=== PATIENT | female | born 1965 | race Caucasian/White ===

== ENCOUNTER 2019-07-28 12:14 | Emergency (ER) | payer MEDICAID ==
[2019-07-28] MEDS ORDERED: Sodium Chloride 0.9% 10 ML Syringe FLUSH PRN (12:30)
[2019-07-28] MEDS ORDERED: Labetalol 20 MG/4 ML Syringe IVPUSH ONE ×3 (12:39→13:59)
[2019-07-28 13:08] LABS: CHLORIDE,CL 99 mmol/L (54-184); SODIUM,NA 141 mmol/L (69-191)
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
[2019-07-28 13:17] LABS: ANION GAP 18.3 mmol/L (10-20)
[2019-07-28 13:54] LABS: BUPRENORPHINE,URINE NEGATIVE (NEGATIVE); MARIJUANA,URINE POSITIVE (NEGATIVE); METHYLENEDIOXYMETHAMP,UR NEGATIVE (NEGATIVE); PHENCYCLIDINE,URINE NEGATIVE (NEGATIVE)
[2019-07-28] MEDS ORDERED: hydrALAZINE 20 MG/ML SDV IVPUSH ONE (14:32)
== END 2019-07-28 15:30 | disposition home or self-care (01) ==
LOC: VM.ED 12:14
DX: I10 Essential (primary) hypertension (principal); F19.20 Other psychoactive substance dependence, uncomplicated; F15.90 Other stimulant use, unspecified, uncomplicated; R30.0 Dysuria; R35.0 Frequency of micturition; R39.15 Urgency of urination; F32.9 Major depressive disorder, single episode, unspecified; F41.9 Anxiety disorder, unspecified; Z79.82 Long term (current) use of aspirin; Z79.899 Other long term (current) drug therapy; Z91.048 Other nonmedicinal substance allergy status
CPT/HCPCS: 80053; 80305-QW; 81001; 85025; 93005; 96374; 96375; 96376; 99284-25; J0360; J3490

== ENCOUNTER 2023-11-17 17:22 | Emergency (ER) | payer MEDICAID ==
[2023-11-17] MEDS: Take Home: LORazepam 0.5 MG Tab, 2 Tab Pack PO ONE (17:43)
[2023-11-17] MEDS: LORazepam 2 MG/ML SDV IM ONE (17:43)
== END 2023-11-17 18:07 | disposition home or self-care (01) ==
LOC: VM.ED 17:22
DX: F43.0 Acute stress reaction (principal); I10 Essential (primary) hypertension; K21.9 Gastro-esophageal reflux disease without esophagitis; Z91.048 Other nonmedicinal substance allergy status; Z79.899 Other long term (current) drug therapy; Z79.82 Long term (current) use of aspirin
CPT/HCPCS: 96372; 99283; A9270; J2060

== ENCOUNTER 2024-06-16 11:14 | Inpatient (IN) | payer MEDICAID ==
[2024-06-16 12:33] LABS: BASOPHILS PERCENT AUTO 0.2 % (0.2-1.2); EOSINOPHILS PERCENT AUTO 0.1 % (0.0-4.0); HEMATOCRIT 37.4 % (33.0-47.0); HEMOGLOBIN 12.8 g/dL (12.0-16.0); IMMATURE GRAN ABSOLUTE AUTO 0.03 x10^3/uL (0.00-0.07); LYMPHOCYTES ABSOLUTE AUTO 1.7 x10^3/uL (1.0-4.8); LYMPHOCYTES PERCENT AUTO 9.6 % (25.0-50.0); MEAN CORPUSCULAR HEMOGLOBIN 29.7 pg (26.0-32.0); MEAN CORPUSCULAR HGB CONC 34.2 g/dL (32.0-36.0); MEAN CORPUSCULAR VOLUME 86.8 fL (78.0-93.0); MONOCYTES ABSOLUTE AUTO 1.6 x10^3/uL (0.0-0.8); MONOCYTES PERCENT AUTO 9.1 % (2.0-11.0); NEUTROPHILS ABSOLUTE AUTO 14.6 x10^3/uL (1.8-7.7); NEUTROPHILS PERCENT AUTO 80.8 % (50.0-80.0); PLATELET COUNT,PLT 319 x10^3/uL (130-400); RED BLOOD CELL COUNT 4.31 x10^6/uL (4.00-5.50)
[2024-06-16 12:58] LABS: A/G RATIO 1.17; ALANINE AMINOTRANSFERASE,ALT 74 U/L (14-59); ALBUMIN 4.1 g/dL (3.4-5.0); ALKALINE PHOSPHATASE 101 U/L (46-116); AMYLASE 9 U/L (25-115); ASPARTATE AMNIOTRANSFERASE,AST 101 U/L (15-37); BILIRUBIN TOTAL 1.2 mg/dL (0.2-1.0); BLOOD UREA NITROGEN,BUN 14 mg/dL (7-18); CALCIUM 9.4 mg/dL (8.5-10.1); CARBON DIOXIDE,CO2 25 mmol/L (21-32); CHLORIDE,CL 100 mmol/L (98-107); CREATININE 1.1 mg/dL (0.55-1.02); EST CRCL DRUG DOSING (CG) 39.55 mL/min; GLUCOSE RANDOM 121 mg/dL (70-99); LIPASE 15 U/L (19-71); MAGNESIUM 1.3 mg/dL (1.8-2.4); PRO B-TYPE NATRIUR PEPT,BNPPRO 1267 pg/mL (<=125); PROTEIN TOTAL,TP 7.6 g/dL (6.4-8.2); SODIUM,NA 141 mmol/L (136-145); TSH ULTRASENSITIVE 0.299 uIU/mL (0.358-3.74)
[2024-06-16 12:59] LABS: ACETAMINOPHEN 0 ug/ml (10-30); ANION GAP 18.6 mmol/L (5-15); ESTIMATED GFR 58 mL/min (>=60); ETHANOL BLOOD MEDICAL < 3 mg/dL (0-3); POTASSIUM,K 2.6 mmol/L (3.5-5.1)
[2024-06-16 14:14] LABS: AMPHETAMINE, URINE POSITIVE (NEGATIVE); BARBITUATES,URINE NEGATIVE (NEGATIVE); BENZODIAZEPINES,URINE POSITIVE (NEGATIVE); BUPRENORPHINE,URINE NEGATIVE (NEGATIVE); COCAINE,URINE NEGATIVE (NEGATIVE); MARIJUANA,URINE POSITIVE (NEGATIVE); METHADONE,URINE NEGATIVE (NEGATIVE); METHAMPHETAMINE,URINE POSITIVE (NEGATIVE); METHYLENEDIOXYMETHAMP,UR NEGATIVE (NEGATIVE); OPIATES,URINE NEGATIVE (NEGATIVE); OXYCODONE,URINE NEGATIVE (NEGATIVE); PHENCYCLIDINE,URINE NEGATIVE
[2024-06-16] MEDS: Potassium Chloride 20 MEQ Tab.ER PO ONE (14:29)
[2024-06-16] MEDS: Lactated Ringers 1,000 ML IV SCH (14:30)
[2024-06-16] MEDS: Magnesium Sulfate/Water 4 GM in Premix Bag 1 BAG IV ONE (14:33)
[2024-06-16] MEDS: Magnesium Sulfate/Water 100 ML ONE (14:39)
[2024-06-16] MEDS: Potassium Chloride Riders 20 MEQ in Premix Bag 1 BAG IV SCH (14:49)
[2024-06-16] MEDS ORDERED: Flumazenil 0.1 MG/ML 5 ML MDV IVPUSH PRN (17:03)
[2024-06-16] MEDS ORDERED: Ondansetron 4 MG Tab.DIS PO PRN (17:06)
[2024-06-16] MEDS ORDERED: HYDROmorphone 0.5 MG/0.5 ML Syringe IVPUSH PRN (17:06)
[2024-06-16] MEDS ORDERED: Cyclobenzaprine 10 MG Tab PO PRN (17:15)
[2024-06-16] MEDS ORDERED: Loratadine 10 MG Tab PO PRN (17:15)
[2024-06-16] MEDS ORDERED: Magnesium Hydroxide 400 MG/5 ML Susp 30 ML Cup PO PRN (17:15)
[2024-06-16 17:27] LABS: CALCIUM 9.4 mg/dL (8.5-10.1); CREATININE 1.1 mg/dL (0.55-1.02); EST CRCL DRUG DOSING (CG) 39.55 mL/min
[2024-06-16 18:25] LABS: BILIRUBIN,URINE MODERATE (NEGATIVE); GLUCOSE,URINE NEGATIVE (NEGATIVE); KETONES,URINE 80 mg/dL (NEGATIVE); LEUKOCYTE ESTERASE,URINE NEGATIVE (NEGATIVE); NITRITE,URINE NEGATIVE (NEGATIVE); OCCULT BLOOD,URINE MODERATE (NEGATIVE); PROTEIN,URINE 100 mg/dL (NEGATIVE); UROBILINOGEN,URINE 0.2 EU/dL (0.2)
[2024-06-16] MEDS: LORazepam 2 MG/ML SDV IVPUSH PRN (18:26)
[2024-06-16 18:35] LABS: APPEARANCE,URINE SLIGHTLY CLOUDY (CLEAR); COLOR,URINE DARK YELLOW (YELLOW)
[2024-06-16 18:36] LABS: BACTERIA,URINE OCCASIONAL /HPF (NOT SEEN); MUCUS,URINE OCCASIONAL /LPF (NOT SEEN); SQUAMOUS EPITHELIAL CELLS,UR OCCASIONAL /HPF (NOT SEEN); WBC,URINE 0-5 /HPF (NOT SEEN)
[2024-06-16] MEDS: Potassium Chloride 20 MEQ Tab.ER PO SCH (18:43)
[2024-06-16] MEDS: Folic Acid 1 MG Tab PO SCH (18:43)
[2024-06-16] MEDS: Thiamine 200 MG/2 ML MDV IV SCH (18:44)
[2024-06-16] MEDS: cefTRIAXone 1 GM Vial IVPUSH SCH (18:44)
[2024-06-16] MEDS: traZODone 50 MG Tab PO SCH (20:45)
[2024-06-16] MEDS: Magnesium Oxide 400 MG Tab PO SCH (20:45)
[2024-06-16] MEDS: Gabapentin 300 MG Cap PO SCH (20:45)
[2024-06-17 06:50] LABS: BASOPHILS ABSOLUTE AUTO 0.1 x10^3/uL (0.0-0.2); BASOPHILS PERCENT AUTO 0.3 % (0.2-1.2); EOSINOPHILS ABSOLUTE AUTO 0.1 x10^3/uL (0.0-0.5); EOSINOPHILS PERCENT AUTO 0.9 % (0.0-4.0); HEMATOCRIT 37.2 % (33.0-47.0); HEMOGLOBIN 12.5 g/dL (12.0-16.0); IMMATURE GRAN ABSOLUTE AUTO 0.04 x10^3/uL (0.00-0.07); LYMPHOCYTES ABSOLUTE AUTO 3.2 x10^3/uL (1.0-4.8); LYMPHOCYTES PERCENT AUTO 21.3 % (25.0-50.0); MEAN CORPUSCULAR HEMOGLOBIN 29.5 pg (26.0-32.0); MEAN CORPUSCULAR HGB CONC 33.6 g/dL (32.0-36.0); MEAN CORPUSCULAR VOLUME 87.7 fL (78.0-93.0); MONOCYTES ABSOLUTE AUTO 1.6 x10^3/uL (0.0-0.8); MONOCYTES PERCENT AUTO 10.6 % (2.0-11.0); NEUTROPHILS ABSOLUTE AUTO 10.1 x10^3/uL (1.8-7.7); NEUTROPHILS PERCENT AUTO 66.6 % (50.0-80.0); RED BLOOD CELL COUNT 4.24 x10^6/uL (4.00-5.50); WHITE BLOOD CELL COUNT,WBC 15.1 x10^3/uL (4.0-10.0)
[2024-06-17 07:06] LABS: A/G RATIO 0.87; ALBUMIN 3.3 g/dL (3.4-5.0); BILIRUBIN TOTAL 0.9 mg/dL (0.2-1.0); CALCIUM 9.2 mg/dL (8.5-10.1); EST CRCL DRUG DOSING (CG) 43.51 mL/min; POTASSIUM,K 3.6 mmol/L (3.5-5.1); PROTEIN TOTAL,TP 7.1 g/dL (6.4-8.2)
[2024-06-17 07:07] LABS: PLATELET COUNT,PLT 331 x10^3/uL (130-400)
[2024-06-17 07:09] LABS: ANION GAP 12.6 mmol/L (5-15)
[2024-06-17] MEDS: buPROPion 150 MG Tab.ER PO SCH (09:40)
[2024-06-17] MEDS: Potassium Chloride 20 MEQ Tab.ER PO SCH (09:40)
[2024-06-17] MEDS: Tamsulosin 0.4 MG Cap.ER PO SCH (09:40)
[2024-06-17] MEDS: PARoxetine 20 MG Tab PO SCH (09:41)
[2024-06-17] MEDS: Pantoprazole 40 MG Tab.CR PO SCH (09:41)
[2024-06-17] MEDS: Multivitamin Tab PO SCH (09:41)
[2024-06-17] MEDS: Atenolol 50 MG Tab PO SCH (09:49)
[2024-06-17] MEDS: amLODIPine 5 MG Tab PO SCH (09:59)
[2024-06-17] MEDS: LINACLOTIDE 290 MCG PO SCH (10:00)
[2024-06-17] MEDS: Fluticasone Propionate Nasal Spray 9.9 ML BOTTLE NASBOTH SCH (10:00)
[2024-06-17] MEDS: Sodium Chloride 0.9% 1,000 ML IV SCH (12:22)
[2024-06-17] MEDS: Nicotine 14 MG/24 Hr Patch TRDERM PRN (20:17)
[2024-06-18 06:58] LABS: BASOPHILS ABSOLUTE AUTO 0.1 x10^3/uL (0.0-0.2); BASOPHILS PERCENT AUTO 0.8 % (0.2-1.2); EOSINOPHILS ABSOLUTE AUTO 0.3 x10^3/uL (0.0-0.5); EOSINOPHILS PERCENT AUTO 4.1 % (0.0-4.0); HEMATOCRIT 35.1 % (33.0-47.0); HEMOGLOBIN 11.2 g/dL (12.0-16.0); IMMATURE GRAN ABSOLUTE AUTO 0.02 x10^3/uL (0.00-0.07); LYMPHOCYTES ABSOLUTE AUTO 2.6 x10^3/uL (1.0-4.8); LYMPHOCYTES PERCENT AUTO 34.4 % (25.0-50.0); MEAN CORPUSCULAR HEMOGLOBIN 29.6 pg (26.0-32.0); MEAN CORPUSCULAR HGB CONC 31.9 g/dL (32.0-36.0); MEAN CORPUSCULAR VOLUME 92.6 fL (78.0-93.0); MONOCYTES ABSOLUTE AUTO 0.9 x10^3/uL (0.0-0.8); MONOCYTES PERCENT AUTO 11.3 % (2.0-11.0); NEUTROPHILS ABSOLUTE AUTO 3.7 x10^3/uL (1.8-7.7); NEUTROPHILS PERCENT AUTO 49.1 % (50.0-80.0); PLATELET COUNT,PLT 249 x10^3/uL (130-400); RED BLOOD CELL COUNT 3.79 x10^6/uL (4.00-5.50); WHITE BLOOD CELL COUNT,WBC 7.6 x10^3/uL (4.0-10.0)
[2024-06-18 07:20] LABS: A/G RATIO 0.81; ALBUMIN 2.6 g/dL (3.4-5.0); BILIRUBIN TOTAL 0.3 mg/dL (0.2-1.0); CALCIUM 8.4 mg/dL (8.5-10.1); CREATININE 0.8 mg/dL (0.55-1.02); EST CRCL DRUG DOSING (CG) 54.39 mL/min; POTASSIUM,K 3.5 mmol/L (3.5-5.1); PROTEIN TOTAL,TP 5.8 g/dL (6.4-8.2)
[2024-06-18 07:22] LABS: ANION GAP 10.5 mmol/L (5-15)
[2024-06-18] MEDS: Acetaminophen 500 MG Tab PO PRN (10:20)
[2024-06-18] MEDS: ALPRAZolam 0.25 MG Tab PO PRN (10:54)
[2024-06-18] MEDS: Enoxaparin 40 MG/0.4 ML Syringe SUBCUT SCH (12:44)
[2024-06-18] MEDS: hydrOXYzine HCl 25 MG Tab PO PRN (13:46)
[2024-06-19 06:52] LABS: BASOPHILS ABSOLUTE AUTO 0.1 x10^3/uL (0.0-0.2); BASOPHILS PERCENT AUTO 0.7 % (0.2-1.2); EOSINOPHILS ABSOLUTE AUTO 0.3 x10^3/uL (0.0-0.5); EOSINOPHILS PERCENT AUTO 4.6 % (0.0-4.0); HEMATOCRIT 36.9 % (33.0-47.0); HEMOGLOBIN 11.9 g/dL (12.0-16.0); IMMATURE GRAN ABSOLUTE AUTO 0.02 x10^3/uL (0.00-0.07); LYMPHOCYTES ABSOLUTE AUTO 2.6 x10^3/uL (1.0-4.8); LYMPHOCYTES PERCENT AUTO 36.7 % (25.0-50.0); MEAN CORPUSCULAR HEMOGLOBIN 29.6 pg (26.0-32.0); MEAN CORPUSCULAR HGB CONC 32.2 g/dL (32.0-36.0); MEAN CORPUSCULAR VOLUME 91.8 fL (78.0-93.0); MONOCYTES ABSOLUTE AUTO 0.6 x10^3/uL (0.0-0.8); MONOCYTES PERCENT AUTO 8.4 % (2.0-11.0); NEUTROPHILS ABSOLUTE AUTO 3.5 x10^3/uL (1.8-7.7); NEUTROPHILS PERCENT AUTO 49.3 % (50.0-80.0); PLATELET COUNT,PLT 308 x10^3/uL (130-400); RED BLOOD CELL COUNT 4.02 x10^6/uL (4.00-5.50); WHITE BLOOD CELL COUNT,WBC 7.1 x10^3/uL (4.0-10.0)
[2024-06-19 07:03] LABS: CALCIUM 9.2 mg/dL (8.5-10.1); CREATININE 0.8 mg/dL (0.55-1.02); EST CRCL DRUG DOSING (CG) 54.39 mL/min; POTASSIUM,K 3.8 mmol/L (3.5-5.1)
[2024-06-19 07:05] LABS: ANION GAP 9.8 mmol/L (5-15)
[2024-06-19] MEDS: Clindamycin HCl 150 MG Cap PO SCH (08:22)
[2024-06-19] MEDS: Sodium Chloride 0.9% 10 ML Syringe FLUSH PRN (08:26)
[2024-06-19] MEDS: Hydrochlorothiazide 25 MG Tab PO SCH (11:46)
== END 2024-06-19 16:32 | disposition swing bed (61) | DRG 564 ==
LOC: VM.ED 11:14 → VM.MS 15:44
PROVIDERS: ADMIT Internal Medicine; ATTEND Internal Medicine
DX: T79.6XXA Traumatic ischemia of muscle, initial encounter (principal); G93.41 Metabolic encephalopathy; R41.0 Disorientation, unspecified; R74.8 Abnormal levels of other serum enzymes; F12.10 Cannabis abuse, uncomplicated; I10 Essential (primary) hypertension; E78.00 Pure hypercholesterolemia, unspecified; H54.7 Unspecified visual loss; Z74.1 Need for assistance with personal care; Z90.710 Acquired absence of both cervix and uterus; K59.09 Other constipation; Z79.51 Long term (current) use of inhaled steroids; K04.7 Periapical abscess without sinus; M19.90 Unspecified osteoarthritis, unspecified site; Z91.048 Other nonmedicinal substance allergy status; G89.29 Other chronic pain; M54.2 Cervicalgia; G43.909 Migraine, unspecified, not intractable, without status migrainosus; K21.9 Gastro-esophageal reflux disease without esophagitis; E87.6 Hypokalemia; F41.9 Anxiety disorder, unspecified; J45.909 Unspecified asthma, uncomplicated; E83.42 Hypomagnesemia; F15.10 Other stimulant abuse, uncomplicated; M54.16 Radiculopathy, lumbar region; F17.200 Nicotine dependence, unspecified, uncomplicated; F32.A Depression, unspecified; Z88.0 Allergy status to penicillin; Z88.8 Allergy status to other drugs, medicaments and biological substances; Z98.1 Arthrodesis status; Z98.51 Tubal ligation status; Z87.11 Personal history of peptic ulcer disease; Z79.899 Other long term (current) drug therapy; Z98.890 Other specified postprocedural states
CPT/HCPCS: 36415; 51798; 70450; 71045; 80048; 80053; 80143; 80179; 80305-QW; 80307; 81001; 82140; 82150; 82550; 83605; 83690; 83735; 83880; 84443; 84484; 85025; 93005; 93010; 96365; 96368; 97110-GP; 97162-GP; 97165-GO; 97535-GO; 99284; 99285-25; A9270-GY; C1758; J0696; J1650; J2060; J3411; J3475; J3480; J3490; J7030; J7120; U0002

== ENCOUNTER 2024-06-19 09:00 | Inpatient (IN) | payer MEDICAID ==
[2024-06-19] MEDS ORDERED: Loratadine 10 MG Tab PO PRN (15:30)
[2024-06-19] MEDS ORDERED: Magnesium Hydroxide 400 MG/5 ML Susp 30 ML Cup PO PRN (15:30)
[2024-06-19] MEDS ORDERED: Ondansetron 4 MG Tab.DIS PO PRN (15:30)
[2024-06-19] MEDS ORDERED: Cyclobenzaprine 10 MG Tab PO PRN (15:30)
[2024-06-19] MEDS: Clindamycin HCl 150 MG Cap PO SCH (17:15)
[2024-06-19] MEDS: ALPRAZolam 0.25 MG Tab PO PRN (17:16)
[2024-06-19] MEDS: Nicotine 14 MG/24 Hr Patch TRDERM PRN (17:17)
[2024-06-19] MEDS: Gabapentin 300 MG Cap PO SCH (20:12)
[2024-06-19] MEDS: Magnesium Oxide 400 MG Tab PO SCH (20:12)
[2024-06-19] MEDS: traZODone 50 MG Tab PO SCH (20:12)
[2024-06-20] MEDS: hydrOXYzine HCl 25 MG Tab PO PRN (00:02)
[2024-06-20] MEDS: Atenolol 50 MG Tab PO SCH (08:10)
[2024-06-20] MEDS: Tamsulosin 0.4 MG Cap.ER PO SCH (08:11)
[2024-06-20] MEDS: buPROPion 150 MG Tab.ER PO SCH (08:11)
[2024-06-20] MEDS: Multivitamin Tab PO SCH (08:11)
[2024-06-20] MEDS: Hydrochlorothiazide 25 MG Tab PO SCH (08:11)
[2024-06-20] MEDS: PARoxetine 20 MG Tab PO SCH (08:11)
[2024-06-20] MEDS: amLODIPine 5 MG Tab PO SCH (08:11)
[2024-06-20] MEDS: Pantoprazole 40 MG Tab.CR PO SCH (08:12)
[2024-06-20] MEDS: Potassium Chloride 20 MEQ Tab.ER PO SCH (08:12)
[2024-06-20] MEDS: Folic Acid 1 MG Tab PO SCH (08:12)
[2024-06-20] MEDS: Fluticasone Propionate Nasal Spray 9.9 ML BOTTLE NASBOTH SCH (08:12)
[2024-06-20] MEDS: Thiamine 200 MG/2 ML MDV IV SCH (08:17)
[2024-06-20] MEDS ORDERED: LINACLOTIDE 290 MCG PO SCH (09:00)
[2024-06-20] MEDS: Acetaminophen 500 MG Tab PO PRN (13:15)
[2024-06-21] MEDS: Thiamine 100 MG Tab PO SCH (10:15)
[2024-06-23 08:41] LABS: BASOPHILS ABSOLUTE AUTO 0.1 x10^3/uL (0.0-0.2); BASOPHILS PERCENT AUTO 0.6 % (0.2-1.2); EOSINOPHILS ABSOLUTE AUTO 0.3 x10^3/uL (0.0-0.5); EOSINOPHILS PERCENT AUTO 3.7 % (0.0-4.0); HEMATOCRIT 43.3 % (33.0-47.0); HEMOGLOBIN 14.1 g/dL (12.0-16.0); IMMATURE GRAN ABSOLUTE AUTO 0.02 x10^3/uL (0.00-0.07); LYMPHOCYTES ABSOLUTE AUTO 3.3 x10^3/uL (1.0-4.8); LYMPHOCYTES PERCENT AUTO 42.1 % (25.0-50.0); MEAN CORPUSCULAR HEMOGLOBIN 29.5 pg (26.0-32.0); MEAN CORPUSCULAR HGB CONC 32.6 g/dL (32.0-36.0); MEAN CORPUSCULAR VOLUME 90.6 fL (78.0-93.0); MONOCYTES ABSOLUTE AUTO 0.9 x10^3/uL (0.0-0.8); MONOCYTES PERCENT AUTO 11.2 % (2.0-11.0); NEUTROPHILS ABSOLUTE AUTO 3.3 x10^3/uL (1.8-7.7); NEUTROPHILS PERCENT AUTO 42.1 % (50.0-80.0); PLATELET COUNT,PLT 367 x10^3/uL (130-400); RED BLOOD CELL COUNT 4.78 x10^6/uL (4.00-5.50); WHITE BLOOD CELL COUNT,WBC 7.8 x10^3/uL (4.0-10.0)
[2024-06-23 09:03] LABS: CALCIUM 9.1 mg/dL (8.5-10.1); CREATININE 1.5 mg/dL (0.55-1.02); EST CRCL DRUG DOSING (CG) 29.01 mL/min; POTASSIUM,K 4.4 mmol/L (3.5-5.1)
[2024-06-23 09:04] LABS: ANION GAP 14.4 mmol/L (5-15)
[2024-06-24] MEDS ORDERED: Potassium Chloride 20 MEQ Tab.ER PO SCH (09:00)
== END 2024-06-23 14:10 | disposition home health service (06) | DRG 149 ==
LOC: VM.MS 16:35
PROVIDERS: ADMIT Internal Medicine; ATTEND Internal Medicine
DX: R42 Dizziness and giddiness (principal); G93.41 Metabolic encephalopathy; H54.7 Unspecified visual loss; E78.00 Pure hypercholesterolemia, unspecified; I10 Essential (primary) hypertension; K59.09 Other constipation; K21.9 Gastro-esophageal reflux disease without esophagitis; M19.90 Unspecified osteoarthritis, unspecified site; M54.9 Dorsalgia, unspecified; G89.29 Other chronic pain; M79.7 Fibromyalgia; M54.2 Cervicalgia; G43.909 Migraine, unspecified, not intractable, without status migrainosus; F41.9 Anxiety disorder, unspecified; F32.A Depression, unspecified; J45.909 Unspecified asthma, uncomplicated; M54.16 Radiculopathy, lumbar region; K04.7 Periapical abscess without sinus; E87.6 Hypokalemia; E83.42 Hypomagnesemia; F19.10 Other psychoactive substance abuse, uncomplicated; Z88.0 Allergy status to penicillin; Z88.8 Allergy status to other drugs, medicaments and biological substances; Z91.048 Other nonmedicinal substance allergy status; Z79.51 Long term (current) use of inhaled steroids; Z79.899 Other long term (current) drug therapy; Z87.11 Personal history of peptic ulcer disease; Z87.440 Personal history of urinary (tract) infections; Z90.710 Acquired absence of both cervix and uterus; Z98.51 Tubal ligation status; Z98.1 Arthrodesis status
CPT/HCPCS: 36415; 80048; 85025; 95851-GO; 97110-GP; 97116-GP; 97530-GO; 97535-GO; A9270-GY; J3411

== ENCOUNTER 2025-05-10 15:43 | Emergency (ER) | payer MEDICAID ==
[2025-05-10 16:38] LABS: BASOPHILS ABSOLUTE AUTO 0.1 x10^3/uL (0.0-0.2); BASOPHILS PERCENT AUTO 0.8 % (0.2-1.2); EOSINOPHILS ABSOLUTE AUTO 0.3 x10^3/uL (0.0-0.5); EOSINOPHILS PERCENT AUTO 4.3 % (0.0-4.0); IMMATURE GRAN ABSOLUTE AUTO 0.01 x10^3/uL (0.00-0.07); IMMATURE GRAN PERCENT AUTO 0.10 % (0.00-0.43); LYMPHOCYTES ABSOLUTE AUTO 2.3 x10^3/uL (1.0-4.8); LYMPHOCYTES PERCENT AUTO 30.3 % (25.0-50.0); MONOCYTES ABSOLUTE AUTO 0.9 x10^3/uL (0.0-0.8); MONOCYTES PERCENT AUTO 12.1 % (2.0-11.0); NEUTROPHILS ABSOLUTE AUTO 3.9 x10^3/uL (1.8-7.7); NEUTROPHILS PERCENT AUTO 52.4 % (50.0-80.0); PLATELET COUNT,PLT 322 x10^3/uL (130-400); RED BLOOD CELL COUNT 4.13 x10^6/uL (4.00-5.50); WHITE BLOOD CELL COUNT,WBC 7.4 x10^3/uL (4.0-10.0)
[2025-05-10 16:50] LABS: A/G RATIO 0.92; ALANINE AMINOTRANSFERASE,ALT 11 U/L (14-59); ASPARTATE AMNIOTRANSFERASE,AST 13 U/L (15-37); BILIRUBIN TOTAL 0.4 mg/dL (0.2-1.0); BLOOD UREA NITROGEN,BUN 11 mg/dL (7-18); CARBON DIOXIDE,CO2 31 mmol/L (21-32); CHLORIDE,CL 101 mmol/L (98-107); CREATININE 1.3 mg/dL (0.55-1.02); GLUCOSE RANDOM 99 mg/dL (70-99); POTASSIUM,K 4.5 mmol/L (3.5-5.1); PROTEIN TOTAL,TP 7.1 g/dL (6.4-8.2); SODIUM,NA 139 mmol/L (136-145)
[2025-05-10 16:53] LABS: ESTIMATED GFR 47 mL/min (>=60)
[2025-05-10 17:18] LABS: APPEARANCE,URINE CLEAR (CLEAR); GLUCOSE,URINE NEGATIVE (NEGATIVE); OCCULT BLOOD,URINE NEGATIVE (NEGATIVE)
[2025-05-10 17:19] LABS: ETHANOL BLOOD MEDICAL < 3 mg/dL (0-3)
[2025-05-10 17:21] LABS: AMPHETAMINE, URINE NEGATIVE (NEGATIVE); BARBITUATES,URINE NEGATIVE (NEGATIVE); BENZODIAZEPINES,URINE POSITIVE (NEGATIVE); BUPRENORPHINE,URINE NEGATIVE (NEGATIVE); MARIJUANA,URINE POSITIVE (NEGATIVE); METHAMPHETAMINE,URINE NEGATIVE (NEGATIVE); METHYLENEDIOXYMETHAMP,UR NEGATIVE (NEGATIVE); OPIATES,URINE NEGATIVE (NEGATIVE); OXYCODONE,URINE NEGATIVE (NEGATIVE); PHENCYCLIDINE,URINE NEGATIVE
[2025-05-10] MEDS: Ondansetron 4 MG/2 ML SDV IVPUSH ONE (17:44)
== END 2025-05-10 18:10 | disposition home or self-care (01) ==
LOC: VM.ED 15:43
DX: R41.0 Disorientation, unspecified (principal); F41.9 Anxiety disorder, unspecified; I10 Essential (primary) hypertension; M19.90 Unspecified osteoarthritis, unspecified site; F17.200 Nicotine dependence, unspecified, uncomplicated; Z79.899 Other long term (current) drug therapy; Z88.8 Allergy status to other drugs, medicaments and biological substances; Z90.710 Acquired absence of both cervix and uterus
CPT/HCPCS: 36415; 80053; 80143; 80179; 80305-QW; 80307; 81003; 85025; 99284